=== PATIENT | female | born 1950 | race Caucasian/White ===

== ENCOUNTER 2020-12-29 16:49 | Emergency (ER) | payer SELFPAY ==
[~2020-12-29] VITALS: Ht 162.6 cm; Wt 98.2 kg
[~2020-12-29 16:49] MED LIST: CEPH-357 PO
[2020-12-29] MEDS ORDERED: ketorolac trometh inj. 60 MG/2 ML VIAL IM ONE (18:55)
[2020-12-29] MEDS ORDERED: LIDOcaine 5% patch TP ONE (18:55)
[2020-12-29] MEDS ORDERED: acetaminophen 325mg tablet PO ONE (18:55)
[2020-12-29] MEDS ORDERED: HYDR-3965 PO (19:31)
[2020-12-29] MEDS ORDERED: ONDA4TAB6 PO (19:31)
[2020-12-29 19:49] VITALS: BP 146/89
== END 2020-12-29 19:37 | disposition home or self-care (01) ==
LOC: ER 16:51
DX: R07.81 Pleurodynia (principal); M79.601 Pain in right arm; E78.00 Pure hypercholesterolemia, unspecified; F32.9 Major depressive disorder, single episode, unspecified; Z90.710 Acquired absence of both cervix and uterus; Z98.890 Other specified postprocedural states; Z88.0 Allergy status to penicillin; Z79.2 Long term (current) use of antibiotics; Z79.899 Other long term (current) drug therapy
CPT/HCPCS: 71045; 96372; 99284; J1885

== ENCOUNTER 2022-09-20 13:20 | Emergency (ER) | payer MEDICARE ==
[~2022-09-20] VITALS: Ht 162.6 cm; Wt 99.5 kg
[~2022-09-20 13:20] MED LIST changes: +ONDA4TAB6 PO
[2022-09-20 13:43] VITALS: BP 123/76
[2022-09-20] MEDS ORDERED: AZIT250T2 PO (15:07)
[2022-09-20] MEDS ORDERED: BENZ-38 PO (15:07)
== END 2022-09-20 16:12 | disposition home or self-care (01) ==
LOC: ER 13:20
DX: J20.9 Acute bronchitis, unspecified (principal); E78.00 Pure hypercholesterolemia, unspecified; F32.A Depression, unspecified; Z88.0 Allergy status to penicillin; Z79.899 Other long term (current) drug therapy; Z79.1 Long term (current) use of non-steroidal anti-inflammatories (NSAID); Z79.2 Long term (current) use of antibiotics
CPT/HCPCS: 71045; 99284

== ENCOUNTER 2024-08-26 08:16 | Emergency (ER) | payer MEDICARE ==
[~2024-08-26] VITALS: Ht 162.6 cm; Wt 96.0 kg
[2024-08-26 08:19] VITALS: BP 167/142; PULSE 78; RESP 18; TEMP 97.7; O2SAT 97
[2024-08-26 08:48] LABS: BASOPHILS % (AUTO) 0.5 % (0-1); EOSINOPHILS # (AUTO) 0.1 X10'3 (0-0.9); EOSINOPHILS % (AUTO) 2.1 % (0-6); HEMATOCRIT 46.4 % (35.0-45.0); HEMOGLOBIN 15.7 g/dl (12.0-16.0); LYMPHOCYTES # (AUTO) 1.1 X10'3 (1.1-4.8); LYMPHOCYTES % (AUTO) 27.7 % (21-51); MEAN CORPUSCULAR HEMOGLOBIN 31.9 PG (27.0-31.0); MEAN CORPUSCULAR HGB CONC 33.9 g/dL (33.0-36.5); MEAN CORPUSCULAR VOLUME 94.2 FL (78-98); MEAN PLATELET VOLUME 8.2 FL (7.4-10.4); MONOCYTES # (AUTO) 0.5 X10'3 (0-0.9); MONOCYTES % (AUTO) 13.2 % (2-12); NEUTROPHILS # (AUTO) 2.3 X10'3 (1.8-7.7); NEUTROPHILS % (AUTO) 56.5 % (42-75); PLATELET COUNT 159 X10'3 (140-440); RED BLOOD COUNT 4.92 X10'6 (4.20-5.60); RED CELL DISTRIBUTION WIDTH 13.1 % (11.5-14.5)
[2024-08-26] MEDS ORDERED: VALA10002 PO (08:58)
[2024-08-26] MEDS ORDERED: PRED50TA PO (08:58)
[2024-08-26] MEDS ORDERED: HYDR-3965 PO (08:59)
[2024-08-26 09:00] LABS: ALANINE AMINOTRANSFERASE 24 U/L (12-78); ALBUMIN 3.5 G/DL (3.4-5.0); ALBUMIN/GLOBULIN RATIO 1.1 (1.1-1.5); ALKALINE PHOSPHATASE 79 IU/L (46-116); ANION GAP 6 (8-16); ASPARTATE AMINO TRANSFERASE 17 U/L (10-37); BILIRUBIN,TOTAL 0.4 MG/DL (0.1-1.0); BLOOD UREA NITROGEN 16 MG/DL (7-18); BUN/CREATININE RATIO 21.6 (10.0-20.0); CALCIUM 8.4 MG/DL (8.5-10.1); CHLORIDE 108 MMOL/L (99-107); CREATININE 0.74 MG/DL (0.40-0.90); GLUCOSE 105 MG/DL (70-104); LIPASE 57 U/L (16-77); POTASSIUM 3.8 MMOL/L (3.5-5.1); SODIUM 142 MMOL/L (135-145); TOTAL CARBON DIOXIDE 27.8 MMOL/L (24-32); TOTAL PROTEIN 6.8 G/DL (6.4-8.2); eCRCL 58 ML/MIN; eGFR 77 ML/MIN
== END 2024-08-26 09:14 | disposition home or self-care (01) ==
LOC: ER 08:17
DX: B02.9 Zoster without complications (principal); Z88.0 Allergy status to penicillin; Z79.899 Other long term (current) drug therapy
CPT/HCPCS: 36415; 80053; 83690; 85025; 99283